=== PATIENT | female | born 1985 | race Caucasian/White ===

== ENCOUNTER 2020-09-10 15:36 | Emergency (ER) | payer OTHER ==
[2020-09-10 17:56] LABS: BILIRUBIN NEGATIVE (NEGATIVE); BLOOD TRACE-INTACT Ery/uL (NEGATIVE); CLARITY CLEAR (CLEAR); COLOR YELLOW (YELLOW); GLUCOSE (U) NORMAL (NORMAL); LEUKOCYTES NEGATIVE Leu/uL (NEGATIVE); NITRITE NEGATIVE (NEGATIVE); PROTEIN NEGATIVE (NEGATIVE); SPECIFIC GRAVITY <=1.005 (1.001-1.030); UROBILINOGEN 0.2 mg/dL (0.2-1.0)
[2020-09-10 17:56] LABS: BASOPHIL 0.5 % (0-2); EOSINOPHIL 0.5 % (0-5); HCT 38.4 % (37.0-47.0); HGB 12.7 g/dl (12.5-16.0); LYMPHOCYTE 16.7 % (15-48); MCH 29.3 pg (25.0-31.0); MCHC 33.1 g/dL (32.0-36.0); MCV 88.7 fL (78.0-100.0); MONOCYTE 5.7 % (0-12); MPV 9.7 fL (6.0-9.5); NEUTROPHIL 76.3 % (41-80); NRBC 0; PLT 410 K/uL (150-400); RBC 4.33 M/uL (4.20-5.40); RDW 13.1 % (11.5-14.0)
[2020-09-10 17:57] LABS: AMPHETAMINES NEGATIVE (NEGATIVE); BARBITURATES NEGATIVE (NEGATIVE); ECSTASY (MDMA) NEGATIVE (NEGATIVE); MARIJUANA (THC) NEGATIVE (NEGATIVE); METHADONE NEGATIVE (NEGATIVE); OPIATES NEGATIVE (NEGATIVE); OXYCODONE NEGATIVE (NEGATIVE)
[2020-09-10 18:01] LABS: BACTERIA TRACE; SQUAMOUS EPITHELIAL CELLS RARE; URINARY RBC RARE
[2020-09-10 18:16] LABS: BUN/CREAT RATIO (CALC) 12.7 RATIO; CREATININE 0.71 mg/dL (0.51-0.95); POTASSIUM 3.7 mmol/L (3.5-5.1)
== END 2020-09-10 20:13 | disposition home or self-care (01) ==
LOC: FER 15:36
PROVIDERS: Nurse Practitioner Family
DX: R07.89 Other chest pain (principal)
CPT/HCPCS: 36415; 71046; 80048; 80305; 81001; 84484; 85025; 93005; J1885

== ENCOUNTER 2020-11-07 11:10 | Emergency (ER) | payer OTHER ==
[2020-11-07 11:54] LABS: BASOPHIL 0.5 % (0-2); HCT 38.1 % (37.0-47.0); HGB 12.3 g/dl (12.5-16.0); LYMPHOCYTE 23.7 % (15-48); MCH 28.1 pg (25.0-31.0); MCHC 32.3 g/dL (32.0-36.0); MCV 87.2 fL (78.0-100.0); MONOCYTE 5.5 % (0-12); MPV 9.6 fL (6.0-9.5); NRBC 0; PLT 365 K/uL (150-400); RBC 4.37 M/uL (4.20-5.40); WBC 9.2 K/uL (4.0-10.5)
[2020-11-07 12:06] LABS: ALBUMIN 3.8 g/dL (3.4-5.0); BILIRUBIN - TOTAL 0.3 mg/dL (0.2-1.0); BUN/CREAT RATIO (CALC) 12.1 RATIO; CREATININE 0.58 mg/dL (0.51-0.95); POTASSIUM 3.8 mmol/L (3.5-5.1); TOTAL PROTEIN 7.8 g/dL (6.4-8.2)
== END 2020-11-07 14:57 | disposition home or self-care (01) ==
LOC: FER 11:10
PROVIDERS: Emergency Medicine
DX: R10.11 Right upper quadrant pain (principal); R20.2 Paresthesia of skin; K21.9 Gastro-esophageal reflux disease without esophagitis
CPT/HCPCS: 36415; 80053; 83690; 85025; 99284